=== PATIENT | female | born 1965 | race Asian ===

== ENCOUNTER 2017-02-09 17:39 | Emergency (ER) | payer SELFPAY ==
[~2017-02-09] VITALS: Ht 157.5 cm; Wt 49.9 kg
[2017-02-09 17:58] VITALS: BP 144/82
--- NOTE | 2017-02-09 21:44 | NUR ---
PT TAKEN TO BED 7
--- NOTE | 2017-02-09 21:48 | NUR ---
Dr. Zavala evaluating patient at bedside.
--- NOTE | 2017-02-09 21:50 | NUR ---
PT PRESENTS TO ER W/C/O RUQ PAIN SINCE LAST NOC. HX GALLSTONES MANY YEARS AGO. PT DENIES N/V/D; SKIN IS PINK/WARM/DRY; AAOX4 WITH EVEN AND STEADY GAIT; LUNGS CLEAR BL; HR EVEN AND REGULAR; PT DENIES ANY FEVER, CP, SOB, OR COUGH AT THIS TIME; PATIENT STATES PAIN OF 7/10 AT THIS TIME; VSS; PATIENT POSITIONED FOR COMFORT; HOB ELEVATED; BEDRAILS UP X2; BED DOWN. ER MD MADE AWARE OF PT STATUS.
[2017-02-09 22:30] VITALS: BP 127/79
== END 2017-02-09 21:55 | disposition home or self-care (01) ==
LOC: MED 17:39
DX: N36.8 Other specified disorders of urethra (principal); R03.0 Elevated blood-pressure reading, without diagnosis of hypertension; Z88.8 Allergy status to other drugs, medicaments and biological substances